=== PATIENT | female | born 1970 | race Caucasian/White ===

== ENCOUNTER → 2020-11-11 | Outpatient (CLI) | payer OTHER ==
--- NOTE | 2020-11-11 16:57 | CT ---
EXAMINATION TYPE: CT angio chest DATE OF EXAM: 11/11/2020 COMPARISON: None HISTORY: Dyspnea on exertion CT DLP: 607 mGycm Automated exposure control for dose reduction was used. CONTRAST: Performed with IV Contrast, patient injected with 70 mL of Isovue 370. There are 3-D post processed images. Images obtained from the thoracic inlet to the diaphragm. There is no mediastinal adenopathy. Thoracic aorta is intact. There is no aneurysm or dissection. The ascending aorta measures 3.1 cm. There are no hilar masses. There is normal contrast opacification o f the pulmonary arteries. I see no filling defect. Heart size is normal. There is no pericardial effusion. Upper abdominal soft tissues are intact. Ther e is low-density 2 cm mass on the left adrenal gland. The lungs are clear of infiltrate. There is minimal subpleural interstitial density in the posterior lung johnson. The thoracic vertebra have normal spacing and alignment. There is no compression fracture. Sternum is intact. IMPRESSION: No evidence of pulmonary embolism. Mild subsegmental atelectasis in the posterior lung johnson. Low-density left adrenal mass is benign. The density is -9 consistent with significant fat content.
== END ==
LOC: RADCTMAIN 15:39
PROVIDERS: ATTEND Internal Medicine Critical Care Medicine
DX: R06.09 Other forms of dyspnea (principal)
CPT/HCPCS: 71275; Q9967